=== PATIENT | female | born 1945 | race Asian ===

== ENCOUNTER 2018-02-28 13:53 | Outpatient (CLI) | payer OTHER ==
[~2018-02-28 13:53] MED LIST: ALLEGRA ALRG180 M1 PO; FLUT0.05 NAS; HYDR25TA60 PO; LEVO500T PO; LISI10TA11 PO
[2018-02-28 14:50] LABS: PLATELET COUNT 183 K/uL (152-353)
[2018-02-28 15:32] LABS: POTASSIUM 4.4 mmol/L (3.6-5.2)
== END 2018-02-28 20:27 | disposition home or self-care (01) ==
LOC: LAB 13:53
PROVIDERS: Nurse Practitioner Family
DX: R53.83 Other fatigue (principal); I10 Essential (primary) hypertension; E11.9 Type 2 diabetes mellitus without complications; Z79.899 Other long term (current) drug therapy; Z51.81 Encounter for therapeutic drug level monitoring
CPT/HCPCS: 80053; 80061; 83036; 84436; 84443; 85027

== ENCOUNTER 2019-01-23 09:40 | Emergency (ER) | payer OTHER ==
[~2019-01-23] VITALS: Ht 162.6 cm; Wt 95.3 kg
[2019-01-23 09:56] VITALS: TEMP 97.7
[2019-01-23 11:55] VITALS: BP 147/81
== END 2019-01-23 11:55 | disposition home or self-care (01) ==
LOC: ED 09:40
DX: S16.1XXA Strain of muscle, fascia and tendon at neck level, initial encounter (principal); S70.02XA Contusion of left hip, initial encounter; S30.1XXA Contusion of abdominal wall, initial encounter; V89.0XXA Person injured in unspecified motor-vehicle accident, nontraffic, initial encounter
CPT/HCPCS: 99283

== ENCOUNTER 2019-03-27 11:13 | Outpatient (CLI) | payer OTHER | END 2019-03-27 21:18 | disposition home or self-care (01) | LOC: MAMMO 11:13 | DX: Z12.31 Encounter for screening mammogram for malignant neoplasm of breast (principal) ==

== ENCOUNTER 2019-11-21 09:59 | Outpatient (CLI) | payer OTHER | END 2019-11-21 19:25 | disposition home or self-care (01) | LOC: US 09:59 | DX: I10 Essential (primary) hypertension (principal); E78.49 Other hyperlipidemia; E11.9 Type 2 diabetes mellitus without complications; R60.0 Localized edema; R68.89 Other general symptoms and signs; R89.8 Other abnormal findings in specimens from other organs, systems and tissues; N28.89 Other specified disorders of kidney and ureter ==

== ENCOUNTER 2019-12-27 11:23 | Outpatient (CLI) | payer OTHER | END 2019-12-27 19:48 | disposition home or self-care (01) | LOC: RAD 11:23 | DX: R09.81 Nasal congestion (principal); R05 Cough ==

== ENCOUNTER 2021-01-17 09:16 | Emergency (ER) | payer OTHER ==
[~2021-01-17] VITALS: Ht 162.6 cm; Wt 102.1 kg
[2021-01-17] MEDS ORDERED: CARV12.5 PO (09:34)
[2021-01-17] MEDS ORDERED: CARV6.25 PO (09:34)
[2021-01-17] MEDS ORDERED: ROSU10TA PO (09:35)
[2021-01-17] MEDS ORDERED: JANUMET1 TAB PO (09:35)
[2021-01-17] MEDS ORDERED: MONT10TA PO (09:35)
[2021-01-17] MEDS ORDERED: GLIM2TAB PO (09:36)
[2021-01-17 10:45] VITALS: BP 146/85; TEMP 97.3
== END 2021-01-17 10:46 | disposition home or self-care (01) ==
LOC: ED 09:16
DX: M13.812 Other specified arthritis, left shoulder (principal); I10 Essential (primary) hypertension; Z87.828 Personal history of other (healed) physical injury and trauma
CPT/HCPCS: 96372; 99282; 99283; J1885

== ENCOUNTER 2022-01-20 08:49 | Outpatient (CLI) | payer OTHER ==
[~2022-01-20 08:49] MED LIST changes: +CARV12.5 PO; +CARV6.25 PO; +GLIM2TAB PO; +JANUMET1 TAB PO; +MONT10TA PO; +ROSU10TA PO
== END 2022-01-20 19:36 | disposition home or self-care (01) ==
LOC: MAMMO 08:49
PROVIDERS: ATTEND Nurse Practitioner Family
DX: I10 Essential (primary) hypertension (principal); R78.5 Finding of other psychotropic drug in blood; F64.9 Gender identity disorder, unspecified; M25.519 Pain in unspecified shoulder; M25.559 Pain in unspecified hip; Z12.31 Encounter for screening mammogram for malignant neoplasm of breast

== ENCOUNTER 2022-02-04 10:54 | Outpatient (CLI) | payer OTHER | END 2022-02-04 20:00 | disposition home or self-care (01) | LOC: MAMMO 10:54 | PROVIDERS: ATTEND Nurse Practitioner Family | DX: R92.8 Other abnormal and inconclusive findings on diagnostic imaging of breast (principal); R92.0 Mammographic microcalcification found on diagnostic imaging of breast ==

== ENCOUNTER 2022-08-05 08:54 | Outpatient (CLI) | payer OTHER | END 2022-08-05 19:10 | disposition home or self-care (01) | LOC: MAMMO 08:54 | PROVIDERS: ATTEND Nurse Practitioner Family | DX: R92.8 Other abnormal and inconclusive findings on diagnostic imaging of breast (principal); D24.9 Benign neoplasm of unspecified breast | CPT/HCPCS: G0279 ==

== ENCOUNTER 2022-09-30 09:21 | Outpatient (CLI) | payer OTHER ==
[2022-09-30 10:02] LABS: PLATELET COUNT 175 K/uL (152-353)
[2022-09-30 11:57] LABS: POTASSIUM 4.8 mmol/L (3.6-5.2)
== END 2022-09-30 18:56 | disposition home or self-care (01) ==
LOC: LABW 09:21
PROVIDERS: ATTEND Nurse Practitioner Family
DX: R89.9 Unspecified abnormal finding in specimens from other organs, systems and tissues (principal); N18.30 Chronic kidney disease, stage 3 unspecified; E11.9 Type 2 diabetes mellitus without complications; R53.83 Other fatigue; E78.5 Hyperlipidemia, unspecified; I10 Essential (primary) hypertension; I12.9 Hypertensive chronic kidney disease with stage 1 through stage 4 chronic kidney disease, or unspecified chronic kidney disease
CPT/HCPCS: 36415; 80053; 80061; 81002; 82043; 82306; 82570; 83036; 84436; 84443; 85027

== ENCOUNTER 2022-12-30 13:53 | Outpatient (CLI) | payer OTHER ==
[2022-12-30 14:24] LABS: PLATELET COUNT 173 K/uL (152-353)
[2022-12-30 15:37] LABS: POTASSIUM 4.6 mmol/L (3.6-5.2)
== END 2022-12-30 21:26 | disposition home or self-care (01) ==
LOC: LAB 13:53
PROVIDERS: ATTEND Internal Medicine
DX: E11.9 Type 2 diabetes mellitus without complications (principal); I10 Essential (primary) hypertension; E78.2 Mixed hyperlipidemia; M10.9 Gout, unspecified; M19.90 Unspecified osteoarthritis, unspecified site; E55.9 Vitamin D deficiency, unspecified
CPT/HCPCS: 80053; 80061; 82306; 83036; 84439; 84443; 84550; 85027

== ENCOUNTER 2023-04-25 11:36 | Outpatient (CLI) | payer OTHER | END 2023-04-25 20:03 | disposition home or self-care (01) | LOC: RAD 11:36 | PROVIDERS: ATTEND Internal Medicine | DX: M51.9 Unspecified thoracic, thoracolumbar and lumbosacral intervertebral disc disorder (principal) ==